=== PATIENT | female | born 1945 | race Two or more races ===

== ENCOUNTER 2017-12-19 09:17 | Inpatient (IN) | payer MEDICARE, MEDICAID ==
[~2017-12-19] VITALS: Ht 156.2 cm; Wt 54.4 kg
[2017-12-19] MEDS ORDERED: SODIUM CHLORIDE 0.9% 1,000 ML IV ONE (09:53)
[2017-12-19] MEDS ORDERED: ATROPINE SYRINGE 0.1 MG/ML, 10ML ONE (09:53)
[2017-12-19 10:00] LABS: BASOPHILS # (AUTO) 0.07 x10^3/uL (0-0.1); BASOPHILS % (AUTO) 1 % (0-1); EOSINOPHILS # (AUTO) 0.58 x10^3/uL (0-0.4); EOSINOPHILS % (AUTO) 7 % (1-7); LYMPHOCYTES # (AUTO) 2.53 x10^3/uL (1-3.4); LYMPHOCYTES % (AUTO) 30 % (22-44); MD NO; MEAN CORPUSCULAR HEMOGLOBIN 26.8 pg (27.0-34.8); MEAN CORPUSCULAR HGB CONC 33.2 g/dL (32.4-35.8); MEAN CORPUSCULAR VOLUME 80.9 fL (80-100); MEAN PLATELET VOLUME 8.6 fL (7.4-10.4); MONOCYTES # (AUTO) 0.49 x10^3/uL (0.2-0.8); MONOCYTES % (AUTO) 6 % (2-9); NEUTROPHILS # (AUTO) 4.85 x10^3/uL (1.8-6.8); NEUTROPHILS % (AUTO) 57 % (42-75); PLATELET COUNT 268 x10^3/uL (130-400); RED BLOOD COUNT 4.84 x10^6/uL (3.82-5.3); RED CELL DISTRIBUTION WIDTH 15.6 % (9.6-15.2)
[2017-12-19] MEDS ORDERED: SODIUM CHLORIDE 0.9% 1,000ML IVBOLUS ONE (10:00)
[2017-12-19 10:09] LABS: INTERNATIONAL NORMALIZED RATIO 1.1 (0.93-1.1); PROTHROMBIN TIME 11.3 Seconds (9.6-11.5)
[2017-12-19 10:10] LABS: ALANINE AMINOTRANSFERASE 22 U/L (12-78); ALBUMIN 3.9 g/dL (3.4-5.0); ANION GAP 10 mmol/L (5-15); CALCIUM 8.7 mg/dL (8.5-10.1); CHLORIDE 103 mmol/L (98-107); CREATININE 1.05 mg/dL (0.55-1.02)
[2017-12-19] MEDS ORDERED: ATOR20TA9 PO (10:10)
[2017-12-19] MEDS ORDERED: LISI1TAB3 PO (10:10)
[2017-12-19] MEDS ORDERED: METF500T17 PO (10:10)
[2017-12-19] MEDS ORDERED: LINA5TAB PO (10:10)
[2017-12-19] MEDS ORDERED: FENO145T32 PO (10:10)
[2017-12-19] MEDS ORDERED: GLIM4TAB2 PO (10:10)
[2017-12-19 10:15] LABS: ALKALINE PHOSPHATASE 58 U/L (45-117); BILIRUBIN,TOTAL 0.3 mg/dL (0.2-1.0); TOTAL PROTEIN 6.9 g/dL (6.4-8.2); TROPONIN I < 0.015 ng/mL (0.000-0.045)
[2017-12-19] MEDS: SODIUM CHLORIDE 0.9% 1,000 ML IV SCH ×2 (10:15→15:01)
[2017-12-19] MEDS ORDERED: CEFAZOLIN PMX 1GM/50ML 50 ML IVPB ONE (10:30)
[2017-12-19] MEDS ORDERED: SODIUM CHLORIDE FLUSH 10ML SYR IVF ONE (11:00)
[2017-12-19] MEDS ORDERED: SODIUM CHLORIDE FLUSH 10ML SYR IVF PRN (11:00)
[2017-12-19] MEDS ORDERED: SODIUM CHLORIDE 0.9% 1,000 ML IV SCH (11:09)
[2017-12-19] MEDS ORDERED: ATROPINE 0.4 MG/ML, 1ML IVPush PRN (11:30)
[2017-12-19] MEDS ORDERED: PROMETHAZINE 25 MG/ML, 1ML IM PRN (11:30)
[2017-12-19] MEDS ORDERED: HEPARIN 5,000 UNITS/ML, 1ML SQ SCH (11:30)
[2017-12-19] MEDS ORDERED: ONDANSETRON ODT 4 MG PO PRN (11:30)
[2017-12-19] MEDS ORDERED: CEFAZOLIN PMX 1GM/50ML 50 ML ONE (11:36)
[2017-12-19] MEDS ORDERED: CEFAZOLIN 1,000 MG ONE (11:39)
[2017-12-19] MEDS ORDERED: LIDOCAINE 1%, 50ML ONE ×2 (11:39→12:04)
[2017-12-19] MEDS ORDERED: MIDAZOLAM 1 MG/ML, 2ML ONE (11:39)
[2017-12-19] MEDS ORDERED: FENTANYL PF 100 MCG/2ML ONE ×2 (11:39→12:04)
[2017-12-19] MEDS ORDERED: MIDAZOLAM 1 MG/ML, 5ML ONE (12:04)
[2017-12-19 12:49] LABS: HEMOGLOBIN A1C 8.4 % (4.2-6.3)
[2017-12-19] MEDS ORDERED: HOLD MEDICATION MC PRN (14:30)
[2017-12-19] MEDS ORDERED: ACETAMINOPHEN 325 MG TABLET PO PRN (14:30)
[2017-12-19 14:35] VITALS: BP 111/74
[2017-12-19 15:39] LABS: TROPONIN I 0.021 ng/mL (0.000-0.045)
[2017-12-19] MEDS: INSULIN LISPRO 100 UNITS/ML, PEN SQ-INSULIN SCH ×2 (16:00→21:33)
[2017-12-19] MEDS ORDERED: HYDROcodone/APAP 5/325 TABLET PO PRN (16:30)
[2017-12-19] MEDS: ACETAMINOPHEN 325 MG TABLET PO PRN ×2 (16:33→21:33)
[2017-12-19 19:27] VITALS: BP 146/81
[2017-12-19] MEDS: CEFAZOLIN PMX 1GM/50ML 50 ML IVPB SCH (20:08)
[2017-12-19 20:11] VITALS: BP 144/78
[2017-12-19] MEDS: SODIUM CHLORIDE FLUSH 10ML SYR IVF SCH (20:21)
[2017-12-19] MEDS ORDERED: NITROGLYCERIN 0.4 MG BOTTLE (25 TABS) SL PRN (20:30)
[2017-12-19] MEDS ORDERED: NITROGLYCERIN 0.4 MG/SPRAY SL PRN (20:30)
[2017-12-19 20:55] VITALS: BP 147/64
[2017-12-19] MEDS ORDERED: ATORVASTATIN 20 MG TABLET PO SCH (21:00)
[2017-12-20 04:00] VITALS: BP 129/75
[2017-12-20] MEDS: CEFAZOLIN PMX 1GM/50ML 50 ML IVPB SCH (04:10)
[2017-12-20] MEDS: ACETAMINOPHEN 325 MG TABLET PO PRN (04:17)
[2017-12-20 05:52] LABS: BASOPHILS # (AUTO) 0.04 x10^3/uL (0-0.1); BASOPHILS % (AUTO) 1 % (0-1); EOSINOPHILS # (AUTO) 0.39 x10^3/uL (0-0.4); EOSINOPHILS % (AUTO) 5 % (1-7); LYMPHOCYTES # (AUTO) 1.64 x10^3/uL (1-3.4); LYMPHOCYTES % (AUTO) 21 % (22-44); MD NO; MEAN CORPUSCULAR HEMOGLOBIN 26.5 pg (27.0-34.8); MEAN CORPUSCULAR HGB CONC 33.1 g/dL (32.4-35.8); MEAN CORPUSCULAR VOLUME 80.3 fL (80-100); MEAN PLATELET VOLUME 8.2 fL (7.4-10.4); MONOCYTES # (AUTO) 0.53 x10^3/uL (0.2-0.8); MONOCYTES % (AUTO) 7 % (2-9); NEUTROPHILS # (AUTO) 5.26 x10^3/uL (1.8-6.8); NEUTROPHILS % (AUTO) 67 % (42-75); PLATELET COUNT 202 x10^3/uL (130-400); RED BLOOD COUNT 4.55 x10^6/uL (3.82-5.3); RED CELL DISTRIBUTION WIDTH 15.6 % (9.6-15.2)
[2017-12-20 06:02] LABS: ANION GAP 7 mmol/L (5-15); CALCIUM 8.3 mg/dL (8.5-10.1); CHLORIDE 112 mmol/L (98-107); CREATININE 0.86 mg/dL (0.55-1.02)
[2017-12-20 07:05] VITALS: BP 119/64
[2017-12-20] MEDS: INSULIN LISPRO 100 UNITS/ML, PEN SQ-INSULIN SCH ×2 (08:24→13:47)
[2017-12-20] MEDS: SODIUM CHLORIDE FLUSH 10ML SYR IVF SCH ×2 (08:56→08:57)
[2017-12-20] MEDS ORDERED: LINAGLIPTIN 5 MG TAB PO SCH (09:00)
[2017-12-20] MEDS ORDERED: FENOFIBRATE 145 MG TABLET PO SCH (09:00)
[2017-12-20] MEDS ORDERED: MAALOX/HYOSCYAMINE/LIDOCAINE 45 ML BTL PO ONE (09:00)
[2017-12-20] MEDS ORDERED: ASPIRIN 81 MG TABLET EC PO SCH (12:00)
[2017-12-20] MEDS ORDERED: ASPI-621 PO (12:45)
== END 2017-12-20 14:40 | disposition home or self-care (01) | DRG 243 ==
LOC: ED 09:51 → EDIP 10:31 → 5SO 14:39 → DCLOUNGE 12-20 14:25
PROVIDERS: ADMIT Hospitalist; ATTEND Hospitalist
PROC: 0JH606Z Insertion of Pacemaker, Dual Chamber into Chest Subcutaneous Tissue and Fascia, Open Approach (ICD-10-PCS; principal; 2017-12-19)
PROC: 02HK3JZ Insertion of Pacemaker Lead into Right Ventricle, Percutaneous Approach (ICD-10-PCS; 2017-12-19)
PROC: 02H63JZ Insertion of Pacemaker Lead into Right Atrium, Percutaneous Approach (ICD-10-PCS; 2017-12-19)
DX: I44.2 Atrioventricular block, complete (principal); D68.69 Other thrombophilia; E78.5 Hyperlipidemia, unspecified; I10 Essential (primary) hypertension; E11.65 Type 2 diabetes mellitus with hyperglycemia; R00.1 Bradycardia, unspecified; E78.00 Pure hypercholesterolemia, unspecified; I34.0 Nonrheumatic mitral (valve) insufficiency; K21.9 Gastro-esophageal reflux disease without esophagitis; Z79.82 Long term (current) use of aspirin; Z83.3 Family history of diabetes mellitus; Z82.49 Family history of ischemic heart disease and other diseases of the circulatory system; Z79.84 Long term (current) use of oral hypoglycemic drugs; Z79.899 Other long term (current) drug therapy
CPT/HCPCS: 33208; 36415; 71045; 80048; 80053; 82962; 83036; 83605; 83735; 83880; 84443; 84484; 85025; 85610; 85730; 86850; 86900; 93005; 93306; 99156; 99157; 99285; C1779; C1785; C1892; G0378; J0690; J2250; J3010; J3490; J1815; J7030